=== PATIENT | male | born 1995 | race African-American/Black ===

== ENCOUNTER 2020-03-27 19:18 | Emergency (ER) | payer MEDICAID ==
[~2020-03-27] VITALS: Ht 193 cm; Wt 90.7 kg
--- NOTE | 2020-03-27 19:45 | NUR ---
PT AAOX4. AMBULATORY WITH STEADY GAIT. BIBSELF C/P HEADACHE AND LIGHTHEADED X2 MONTHS. PER ASSESMENT, NO NEURO DEFICIT, VSS. PA AT BEDSIDE FOR EVAL. AWAITING ORDERS.
[2020-03-27] MEDS ORDERED: KETOROLAC TROMETHAMINE INJ 30 MG/ML VIAL ONE (19:51)
--- NOTE | 2020-03-27 19:53 | NUR ---
PHLEBOTMIST AT BEDSIDE FOR LABS
[2020-03-27 19:56] LABS: BASOPHILS % (AUTO) 0.2 % (0.0-2.0); EOSINOPHILS % (AUTO) 0.2 % (0.0-6.0); HEMATOCRIT 42 % (39-51); LYMPHOCYTES # (AUTO) 1.2 /CMM (0.8-4.8); LYMPHOCYTES % (AUTO) 15.9 % (20.0-44.0); MEAN CORPUSCULAR HGB CONC 33 g/dl (31.0-36.0); MEAN CORPUSCULAR VOLUME 91 fL (80-96); MONOCYTES # (AUTO) 0.4 /CMM (0.1-1.30); MONOCYTES % (AUTO) 4.8 % (2.0-12.0); NEUTROPHILS # (AUTO) 5.9 /CMM (1.8-8.9); NEUTROPHILS % (AUTO) 78.9 % (43.0-81.0); PLATELET COUNT (AUTO) 258 /CMM (150-450); RED BLOOD CELL COUNT(AUTO) 4.62 MIL/uL (4.5-6.0); WHITE BLOOD COUNT (AUTO) 7.5 K/uL (4.3-11.0)
--- NOTE | 2020-03-27 19:58 | NUR ---
LINE ESTABLISHED, MEDS GIVEN. PT RESTING COMFORTABLY.
[2020-03-27] MEDS ORDERED: KETOROLAC TROMETHAMINE INJ 30 MG/ML VIAL IV ONE (20:00)
[2020-03-27] MEDS ORDERED: IV NS 0.9% 1,000 ML BAG IV ONE (20:00)
[2020-03-27 20:06] LABS: CALCIUM, SERUM 9.1 mg/dL (8.5-10.1); CREATININE 1.3 mg/dL (0.6-1.3)
[2020-03-27 20:12] LABS: ALBUMIN 4.2 g/dL (3.4-5.0); BILIRUBIN,DIRECT 0.1 mg/dL (0.0-0.2); BILIRUBIN,TOTAL 0.4 mg/dL (0.2-1.0); TOTAL PROTEIN, SERUM 7.1 g/dL (6.4-8.2)
--- NOTE | 2020-03-27 20:41 | NUR ---
Patient discharged to home in stable condition. Written and verbal after care instructions given. Patient verbalizes understanding of instruction and RX. Pt ambulated with steady gait. vss.
--- NOTE | 2020-03-27 20:41 | NUR ---
IV removed. Catheter intact and site benign. Pressure and 4x4 applied to site. No bleeding noted.
[2020-03-27 20:42] VITALS: BP 121/71
== END 2020-03-27 20:52 | disposition home or self-care (01) ==
LOC: ER 19:22
DX: R51 Headache (principal); R53.1 Weakness; R10.10 Upper abdominal pain, unspecified
CPT/HCPCS: 36415; 80048; 80076; 83690; 85025; 96374; 99283; J1885; J7030